=== PATIENT | male | born 1960 | race Caucasian/White ===

== ENCOUNTER 2016-09-26 14:05 | Emergency (ER) | payer OTHER ==
[~2016-09-26] VITALS: Ht 180.3 cm; Wt 91.6 kg
[~2016-09-26 14:05] MED LIST: ALBUTEROL17 GM INH; KEFLEX500 M1 PO; NASAL DECONGEST10 M1 PO; PREDNISONE PO; SEROQUEL XR50 MG PO; VESICARE PO; ZITHROMAX1 G/PKT PO
== END 2016-09-26 17:15 | disposition home or self-care (01) ==
LOC: CED 14:05 → CFTX 14:05
DX: J06.9 Acute upper respiratory infection, unspecified (principal); F41.9 Anxiety disorder, unspecified; F31.9 Bipolar disorder, unspecified
CPT/HCPCS: 99283